=== PATIENT | male | born 1975 | race Caucasian/White ===

== ENCOUNTER 2022-08-10 07:58 | Day surgery (SDC) | payer BC, SELFPAY ==
[2022-08-08 11:37] VITALS: BMI 32.0
[2022-08-10 08:17] VITALS: BP 158/89; PULSE 72; RESP 18; TEMP 36.5; O2SAT 98
[2022-08-10] MEDS: sodium chloride 0.9% 1,000 ML 30 ML IV (08:26)
--- NOTE | 2022-08-10 08:36 | ANES.PREANE2 ---
Pre-Anesthetic Assessment Height/Weight: Height 1.83 m Weight 107.048 kg Temp Pulse Resp BP Pulse Ox O2 Del Method 97.7 F 72 18 158/89 98 08/10/22 08:17 08/10/22 08:17 08/10/22 08:17 08/10/22 08:17 08/10/22 08:17 08/10/22 08:17 Operation Date: 08/10/22 09:30 Proposed Procedures p Colonoscopy 34495,Z12.11(Not Applicable) - Ramesh Linder DO Familial anesthetic complications: None Was Beta Stephanie taken within 24 hours: N/A Was Clonidine taken within 24 hours: N/A Last intake: Intake Last Liquid Date 08/09/22 Last Liquid Time 22:30 Last Solid Date 08/08/22 Last Solid Time 18:00 Social Tobacco and No alcohol Exam alert, oriented x 3, clear to auscultation bilaterally and regular rate & rhythm Airway Mallampati: Class IV Dentition: full History/ROS No significant complaints Anesthetic Plan ASA status: 1 Anesthesia: MAC Risk of > 500 ml blood loss (7ml/kg in children): No Medications/Allergies Home Medications Medication Instructions Recorded Confirmed Last Taken Type loratadine 10 mg tablet (Claritin) 10 mg PO DAILY PRN allergies 08/02/22 08/10/22 Unknown History hydrocortisone 2.5 % topical cream 1 applic VT QID hemorrhoids 3 08/03/22 08/08/22 08/10/22 Rx with perineal applicator weeks #30 grams (Anusol-HC) polyethylene glycol 3350 17 4 g PO DAILY PRN Constipation 08/03/22 08/08/22 08/08/22 History gram/dose oral powder (Miralax) ibuprofen 200 mg tablet 600 mg PO Q6H PRN Pain 08/08/22 08/08/22 08/08/22 History Allergies Allergy/AdvReac Type Severity Reaction Status Date / Time No Known Allergies Allergy Verified 08/08/22 11:33 Current Medications Generic Name Dose Route Start Last Admin Trade Name Freq PRN Reason Stop Dose Admin Sodium Chloride 1,000 mls @ 30 mls/hr 08/10/22 08:15 08/10/22 08:26 Sodium Chloride 0.9% IV 08/11/22 08:14 30 mls/hr .Q24H SAMANTHA Administration PFSH Anesthesia Medical History History of varicocele 14 years ago- varicocelectomy Social History Smoking and tobacco status: current every day smoker smokeless tobacco Data Anesthesia Cardiac Studies: No Data to Display
--- NOTE | 2022-08-10 09:39 | W.PM.OPSUD ---
Surgery/Procedure H&P Update DATE OF PROCEDURE: August 10, 2022 DATE H&P PERFORMED: 08/03/22 PLANNED PROCEDURE: Operation Date: 08/10/22 09:30 Proposed Procedures p Colonoscopy 27105,Z12.11(Not Applicable) - Ramesh Linder DO
[2022-08-10 10:11] VITALS: BP 138/92; PULSE 79; RESP 12; TEMP 36.1; O2SAT 95
--- NOTE | 2022-08-10 10:17 | ANE.PACU2 ---
Inpatient post-anesthesia follow up: Airway intact: Yes Vital signs: Temperature 97 F Pulse Rate 79 Respiratory Rate 12 Blood Pressure 138/92 Pulse Oximetry 95 Oxygen Delivery Me thod Room Air Oxygen Flow Rate Fraction of Inspir ed Oxygen Hydration adequate: Yes Nausea and vomiting: No Pain level: 1 Mental status: Baseline
[2022-08-10 10:28] VITALS: BP 152/91; PULSE 64; RESP 16; O2SAT 98
[2022-08-16 15:19] LABS: Mismatch Repari Proteins-IHC See Report
== END 2022-08-10 11:01 | disposition home or self-care (01) ==
PROVIDERS: Visit Provider Surgery
PROC: 0DJD8ZZ Inspection of Lower Intestinal Tract, Via Natural or Artificial Opening Endoscopic (ICD-10-PCS; CPT 45378; principal; 2022-08-10 09:30)
DX: Z12.11 Encounter for screening for malignant neoplasm of colon (principal); K64.8 Other hemorrhoids; C20 Malignant neoplasm of rectum; F17.290 Nicotine dependence, other tobacco product, uncomplicated
CPT/HCPCS: 45380; 88305; 88342; 88360; J2704; J7030